=== PATIENT | female | born 2000 | race Caucasian/White ===

== ENCOUNTER 2019-12-30 13:20 | Outpatient (REF) | payer BC, SELFPAY ==
[2020-01-01 18:01] LABS: COVID-19 RT-PCR Result NEGATIVE (Negative)
== END 2019-12-30 13:40 ==
LOC: NCHCN 13:20
PROVIDERS: PCP Internal Medicine; Visit Provider Internal Medicine
DX: Z11.59 Encounter for screening for other viral diseases (principal)
CPT/HCPCS: U0003

== ENCOUNTER 2020-03-08 13:24 | Outpatient (REF) | payer SELFPAY ==
[2020-03-11 20:04] LABS: Patient Race White; SARS-CoV-2 RNA Undetected (Undetected); SARS-CoV-2 Specimen Source Nasal
== END 2020-03-08 13:44 ==
LOC: NCHCN 13:24
PROVIDERS: PCP Internal Medicine; Visit Provider Nurse Practitioner Family
DX: Z20.828 Contact with and (suspected) exposure to other viral communicable diseases (principal)
CPT/HCPCS: U0003

== ENCOUNTER 2020-03-10 11:58 | Outpatient (REF) | payer BC, SELFPAY ==
--- NOTE | 2020-03-10 11:20 | PAPFT_PTH ---
PATIENT: Justine Faye LOC: [facility] U#:[id number] AGE/SX: 19/F ROOM: RE03/10/[address]: Edilia Bishop NP : 2000 BED: DIS: 03/10/2020 SPEC #: [id number] RECD: 03/10/20 17:47 STATUS: CECE REQ #: [id number] FAUSTINO: 03/10/20 11:[address]: Edilia Bishop NP DEPT: [facility] Cytology RECD BY: Nathalie Lam ENTERED: 03/10/20 17:48 SP TYPE: PAPFT OTHR DR: Rudolph Cortez Tissues: 1 - CX/ENDOCX FOR PAP SMEARS Procedures: PAP THIN PREP/[facility] Screening Comments: [id number] (CHLAMYDIA/GC)
[2020-03-11 15:20] LABS: Chlamydia Result Negative (Negative); GC Result Negative (Negative)
== END 2020-03-10 12:18 ==
LOC: LBN 11:58
PROVIDERS: PCP Internal Medicine; Visit Provider Nurse Practitioner Women's Health
DX: Z12.4 Encounter for screening for malignant neoplasm of cervix (principal); Z11.3 Encounter for screening for infections with a predominantly sexual mode of transmission
CPT/HCPCS: 87491; 87591; 88142

== ENCOUNTER 2020-10-06 18:03 | Outpatient (REF) | payer BC, SELFPAY ==
[2020-10-07 14:36] LABS: Chlamydia Result Negative (Negative); GC Result Negative (Negative)
== END 2020-10-06 18:04 | disposition home or self-care (01) ==
LOC: LBN 18:03
PROVIDERS: PCP Internal Medicine; Visit Provider Nurse Practitioner Women's Health
DX: Z11.3 Encounter for screening for infections with a predominantly sexual mode of transmission (principal)
CPT/HCPCS: 87491; 87591

== ENCOUNTER 2021-03-08 15:15 | Outpatient (REF) | payer BC, SELFPAY ==
[2021-03-08 14:47] LABS: HCT 36.1 % (36.0-46.0); HGB 12.1 g/dL (11.2-15.7); MCH 29.8 pg (27.0-33.0); MCHC 33.5 % (32.0-36.0); MCV 88.9 fL (80-95); MPV 10.9 fL (8.0-11.0); Platelet Count 172 10^3/uL (130-400); RBC 4.06 10^6/uL (3.93-5.22); RDW 11.7 % (11.7-14.6); RDW-SD 37.5 fL; WBC 4.09 10^3/uL (4.4-10.8)
[2021-03-09 10:41] LABS: HIV-1/2 Ag & Ab Screen Negative (Negative)
[2021-03-09 10:55] LABS: Hepatitis C Ab w Rflx HCV PCR Negative (Negative)
== END 2021-03-08 15:16 | disposition home or self-care (01) ==
LOC: NCHCN 15:15
PROVIDERS: PCP Internal Medicine; Visit Provider Nurse Practitioner Family
DX: Z00.00 Encounter for general adult medical examination without abnormal findings (principal)
CPT/HCPCS: 85027; 86803; 87389

== ENCOUNTER 2021-05-07 14:30 | Outpatient (REF) | payer BC, SELFPAY ==
[2021-05-09 14:03] LABS: COVID-19 RT-PCR UVMMC Result Negative (Negative)
== END 2021-05-07 14:31 | disposition home or self-care (01) ==
LOC: LBN 14:30
PROVIDERS: PCP Internal Medicine; Visit Provider Nurse Practitioner Family
DX: Z20.822 Contact with and (suspected) exposure to COVID-19 (principal); J06.9 Acute upper respiratory infection, unspecified
CPT/HCPCS: U0003

== ENCOUNTER 2023-03-13 12:46 | Outpatient (REF) | payer BC, SELFPAY ==
--- NOTE | 2023-03-13 10:30 | PAPFT_PTH ---
PATIENT: Justine Faye LOC: [facility] U#:[id number] AGE/SX: 22/F ROOM: RE03/13/[address]: Lamar Cha : 2000 BED: DIS: 03/13/2023 SPEC #: [id number] RECD: 03/13/23 17:55 STATUS: CECE RELe #: [id number] FAUSTINO: 03/13/23 10:[address]: Lamar Cha DEPT: [facility] Cytology RECD BY: Nathalie Lam ENTERED: 03/13/23 17:55 SP TYPE: PAPFT OTHR DR: Rudolph Cortez Tissues: 1 - CX/ENDOCX FOR PAP SMEARS Procedures: PAP THIN PREP/[facility] Screening Comments: [id number] (CHLAMYDIA/GC)
[2023-03-13 16:14] LABS: HCT 39.3 % (36.0-46.0); HGB 13.1 g/dL (11.2-15.7); MCH 29.7 pg (27.0-33.0); MCHC 33.3 % (32.0-36.0); MCV 89 fL (80-95); MPV 10.5 fL (8.0-11.0); Platelet Count 177 10^3/uL (130-400); RBC 4.41 10^6/uL (3.93-5.22); RDW 11.5 % (11.7-14.6); RDW-SD 37.4 fL; WBC 4.55 10^3/uL (4.4-10.8)
[2023-03-13 16:39] LABS: Iron 86 ug/dL (50-170); Total Iron Binding Capacity 345 ug/dL (250-450); Transferrin Sat 25 % (15-50)
[2023-03-13 16:47] LABS: ALT 34 U/L (14-59); AST 23 U/L (15-37); Albumin 4.5 g/dL (3.4-5.0); Alkaline Phosphatase 50 U/L (46-116); Anion Gap 10.8 mmol/L (3-11); BUN 13 mg/dL (7-18); Bilirubin, Total 0.6 mg/dL (0.2-1.0); CO2 26.2 mmol/L (21.0-32.0); CREATININE 0.9 mg/dL (0.55-1.02); Calcium 9.5 mg/dL (8.5-10.1); Chloride 104 mmol/L (98-107); Estimated GFR 91.55 (mL/min/1.73m2); Ferritin 57 ng/mL (8-252); Glucose 94 mg/dL (74-106); Potassium 3.6 mmol/L (3.5-5.1); Sodium 141 mmol/L (136-145); Total Protein 7.7 g/dL (6.4-8.2)
[2023-03-14 13:11] LABS: Chlamydia Result Negative (Negative); GC Result Negative (Negative)
== END 2023-03-13 12:47 | disposition home or self-care (01) ==
LOC: NCHCN 12:46
PROVIDERS: PCP Internal Medicine; Visit Provider Nurse Practitioner Family
DX: Z00.00 Encounter for general adult medical examination without abnormal findings (principal); L65.9 Nonscarring hair loss, unspecified; Z11.3 Encounter for screening for infections with a predominantly sexual mode of transmission; Z12.4 Encounter for screening for malignant neoplasm of cervix
CPT/HCPCS: 80053; 85027; 87491; 87591; 88142; 82728; 83540; 83550; 84443

== ENCOUNTER 2023-08-15 13:09 | Outpatient (REF) | payer BC, SELFPAY ==
[2023-08-15 14:43] LABS: Abs Immature Grans 0.02 10^3/uL (0.0-0.06); Absolute Basophil Count 0.02 10^3/uL (0.0-0.2); Absolute Eosinophil Count 0.02 10^3/uL (0.0-0.7); Absolute Lymphocyte Count 0.31 10^3/uL (1.2-3.4); Absolute Monocyte Count 0.25 10^3/uL (0.1-0.8); Absolute Neutrophil Count 8.06 10^3/uL (1.2-6.7); Basophils % 0.2; Eosinophils % 0.2; HCT 39.8 % (36.0-46.0); HGB 13.7 g/dL (11.2-15.7); Immature Grans % 0.2; Lymphocytes % 3.6; MCH 30.3 pg (27.0-33.0); MCHC 34.4 % (32.0-36.0); MCV 88 fL (80-95); MPV 10.8 fL (8.0-11.0); Monocytes % 2.9; Neutrophils % 92.9; Platelet Count 187 10^3/uL (130-400); RBC 4.52 10^6/uL (3.93-5.22); RDW 11.9 % (11.7-14.6); RDW-SD 38.2 fL; WBC 8.68 10^3/uL (4.4-10.8)
[2023-08-15 15:45] LABS: ALT 25 U/L (14-59); AST 16 U/L (15-37); Albumin 4.3 g/dL (3.4-5.0); Alkaline Phosphatase 36 U/L (46-116); Anion Gap 11.5 mmol/L (3-11); BUN 18 mg/dL (7-18); Bilirubin, Total 0.7 mg/dL (0.2-1.0); CO2 24.5 mmol/L (21.0-32.0); CREATININE 0.7 mg/dL (0.55-1.02); Calcium 8.8 mg/dL (8.5-10.1); Chloride 105 mmol/L (98-107); Estimated GFR 123.01 (mL/min/1.73m2); Glucose 94 mg/dL (74-106); Lipase 26 U/L (16-77); Potassium 3.9 mmol/L (3.5-5.1); Sodium 141 mmol/L (136-145); Total Protein 7.1 g/dL (6.4-8.2)
== END 2023-08-15 13:10 | disposition home or self-care (01) ==
LOC: LBN 13:09
PROVIDERS: PCP Internal Medicine; Visit Provider Physician Assistant Medical
DX: R11.10 Vomiting, unspecified (principal)
CPT/HCPCS: 80053; 83690; 85025